=== PATIENT | male | born 1940 | race Caucasian/White ===

== ENCOUNTER 2020-09-13 09:43 | Outpatient (RCR) | payer MEDICARE, SELFPAY ==
[2014-04-26 01:26] VITALS: BMI 26.7
== END 2020-09-13 23:59 ==
LOC: IMMUN 09:43
PROVIDERS: PCP Internal Medicine; Referring Provider Family Medicine; Visit Provider Family Medicine
DX: Z23 Encounter for immunization (principal)
CPT/HCPCS: 0011A; 0012A

== ENCOUNTER → 2022-07-15 | Outpatient (CLI) | payer MEDICARE, SELFPAY ==
[2022-07-15 13:32] LABS: PSA,Total - Annual Screen 0.71 ng/mL (0.00-4.00)
== END | disposition home or self-care (01) ==
PROVIDERS: PCP Internal Medicine; Visit Provider Nurse Practitioner
DX: R39.12 Poor urinary stream (principal); R10.2 Pelvic and perineal pain
CPT/HCPCS: 84153; G0103